=== PATIENT | female | born 1975 | race Caucasian/White ===

== ENCOUNTER → 2016-07-07 | Outpatient (CLI) | payer OTHER ==
--- NOTE | 2016-07-08 10:19 | REPMRS ---
Patient History The patient states she had a clinical breast exam in .Family history of breast cancer in paternal aunt at age 50. Digital Mammo Screening Bilat: July 07, 2016 - Exam #: [id number] Bilateral CC and MLO view(s) were taken. Technologist: Elana Mast, Technologist Prior study comparison: July 02, 2012, right breast digital mammo diagnostic bilateral performed at [facility]. June 27, 2011, right breast digital mammo diagnostic unilateral, performed at [facility]. FINDINGS: There are scattered fibroglandular densities. There has been no change in the appearance of the mammogram from the prior studies. There is a mild amount of residual fibroglandular tissue which is fairly symmetric. There is no interval development of dominant mass, architectural distortion, or clustered microcalcification suggestive of malignancy. ASSESSMENT: BI-RADS/ACR category 1 mammogram. Negative. Recommendation Routine screening mammogram in 1 year (for women over age 40). This mammogram was interpreted with the aid of an FDA-approved computer-aided dectection system. Electronically Signed By: Vicente Servin MD 07/08/16 [id number]
== END ==
LOC: M RAD 17:22
PROVIDERS: ATTEND Advanced Practice Midwife
DX: Z12.31 Encounter for screening mammogram for malignant neoplasm of breast (principal); Z80.3 Family history of malignant neoplasm of breast

== ENCOUNTER → 2017-10-22 | Outpatient (CLI) | payer OTHER | LOC: M RAD 08:17 | DX: Z12.31 Encounter for screening mammogram for malignant neoplasm of breast (principal) | CPT/HCPCS: 77067 ==

== ENCOUNTER → 2018-12-24 | Outpatient (CLI) | payer OTHER ==
--- NOTE | 2018-12-24 13:11 | REPMRS ---
Patient History The patient states she had a clinical breast exam in 2018. Family history of breast cancer at age 50 in paternal aunt. 3D TOMOSYNTHESIS WAS PERFORMED. The Marietta Perdomo lifetime risk for breast cancer is 13.5%. Digital Mammo Screening Bilat: December 24, 2018 - Exam #: [id number] Bilateral CC and MLO view(s) were taken. Technologist: Laly Mcconnell, Technologist Prior study comparison: October 22, 2017, bilateral digital mammo screening bilat performed at [facility]. July 07, 2016, bilateral digital mammo screening bilat performed at [facility]. FINDINGS: There are scattered fibroglandular densities. There has been no change in the appearance of the mammogram from the prior studies. There is a mild amount of residual fibroglandular tissue which is fairly symmetric. There is no interval development of dominant mass, architectural distortion, or clustered microcalcification suggestive of malignancy. Assessment: BI-RADS/ACR category 1 mammogram. Negative Mammogram. Recommendation Routine screening mammogram in 1 year (for women over age 40). This mammogram was interpreted with the aid of an FDA-approved computer-aided dectection system. Electronically Signed By: Vicente Servin MD 12/24/18 [id number]
== END ==
LOC: M RAD 12:31
PROVIDERS: ATTEND Obstetrics & Gynecology
DX: Z12.31 Encounter for screening mammogram for malignant neoplasm of breast (principal); Z80.3 Family history of malignant neoplasm of breast

== ENCOUNTER → 2019-12-30 | Outpatient (CLI) | payer BC ==
--- NOTE | 2019-12-30 14:09 | REPMRS ---
Patient History The patient states she had a clinical breast exam in 2019. Family history of breast cancer at age 50 in paternal aunt. 3D TOMOSYNTHESIS WAS PERFORMED. The Marietta Perdomo lifetime risk for breast cancer is 13.4%. Volpara breast density a. Digital Woman Screen Mammo: December 30, 2019 - Exam #: [id number] Bilateral CC and MLO view(s) were taken. Technologist: Princess Louie, Technologist Prior study comparison: December 24, 2018, bilateral digital mammo screening bilat, performed at [facility]. October 22, 2017, bilateral digital mammo screening bilat, performed at [facility]. FINDINGS: There are scattered fibroglandular densities. There has been no change in the appearance of the mammogram from the prior studies. There is a mild amount of residual fibroglandular tissue which is fairly symmetric. There is no interval development of dominant mass, architectural distortion, or clustered microcalcification suggestive of malignancy. Assessment: BI-RADS/ACR category 1 mammogram. Negative Mammogram. Recommendation Routine screening mammogram in 1 year (for women over age 40). This mammogram was interpreted with the aid of an FDA-approved computer-aided dectection system. Electronically Signed By: Vicente Servin MD 12/30/19 2430
== END ==
LOC: M WHC 12:40
PROVIDERS: ATTEND Advanced Practice Midwife
DX: Z12.31 Encounter for screening mammogram for malignant neoplasm of breast (principal)

== ENCOUNTER → 2021-04-04 | Outpatient (CLI) | payer OTHER | LOC: M WHC 09:47 | PROVIDERS: ATTEND Obstetrics & Gynecology | DX: R92.8 Other abnormal and inconclusive findings on diagnostic imaging of breast (principal) | CPT/HCPCS: 77065; G0279 ==

== ENCOUNTER → 2022-04-18 | Outpatient (CLI) | payer BC | LOC: M WHC 07:24 | PROVIDERS: ATTEND Obstetrics & Gynecology | DX: Z12.31 Encounter for screening mammogram for malignant neoplasm of breast (principal); Z13.820 Encounter for screening for osteoporosis ==